=== PATIENT | male | born 1985 | race Caucasian/White ===

== ENCOUNTER → 2017-11-04 | Outpatient (CLI) | payer OTHER ==
[2017-11-04 10:34] LABS: CALCIUM 8.8 mg/dL (8.4-10.2); POTASSIUM 4.3 mmol/L (3.6-5.0)
== END ==
LOC: LAB 10:01
PROVIDERS: Physician Assistant
DX: Z00.00 Encounter for general adult medical examination without abnormal findings (principal)

== ENCOUNTER → 2018-11-03 | Outpatient (CLI) | payer OTHER ==
[2018-11-03 15:26] LABS: EOS # 0.2 (0.04-0.40); EOS % 3.3 % (0.0-4.0); HEMATOCRIT 45.4 % (42.0-52.0); HEMOGLOBIN 15.7 g/dL (13.5-18.0); LYMPH# 1.5 (1.50-4.00); MEAN CELL VOLUME 92 fl (78-100); MEAN CORPUSCULAR HEMOGLOBIN 32 pg (27-31); MEAN CORPUSCULAR HGB CONC 35 g/dL (33-37); MEAN PLATELET VOLUME 10.2 fl (7.4-10.4); MONO # 0.7 (0.20-0.80); NEU # 3.3 (1.40-6.50); PLATELET COUNT 232 K/mm3 (130-400); RED BLOOD COUNT 4.92 M/mm3 (4.20-5.60); RED CELL DISTRIBUTION WIDTH 12.5 % (11.5-14.5); WHITE BLOOD COUNT 5.7 K/mm3 (4.8-10.8)
[2018-11-03 15:44] LABS: URINE APPEARANCE CLEAR; URINE BILIRUBIN NEGATIVE (NEGATIVE); URINE BLOOD NEGATIVE (NEGATIVE); URINE COLOR YELLOW; URINE GLUCOSE NEGATIVE (NEGATIVE); URINE KETONE NEGATIVE (NEGATIVE); URINE LEUKOCYTE ESTERASE NEGATIVE (NEGATIVE); URINE NITRATE NEGATIVE (NEGATIVE); URINE PROTEIN(semi-quant) NEGATIVE (NEGATIVE); URINE UROBILINOGEN NORMAL (NORMAL); URINE WBC 0-1 /hpf (0-3)
[2018-11-03 15:45] LABS: URINE MUCUS PRESENT (NOT PRESENT)
[2018-11-03 16:11] LABS: ALBUMIN 4.3 g/dL (3.5-5.0); POTASSIUM 3.8 mmol/L (3.5-5.1)
[2018-11-03 16:12] LABS: CALCIUM 9.1 mg/dL (8.3-10.5)
[2018-11-03 16:13] LABS: TOTAL PROTEIN 7.8 g/dL (6.4-8.3)
[2018-11-03 16:15] LABS: TOTAL BILIRUBIN 0.7 mg/dL (0.2-1.2)
== END ==
LOC: LAB 15:03
PROVIDERS: Physician Assistant
DX: Z00.00 Encounter for general adult medical examination without abnormal findings (principal)

== ENCOUNTER 2021-02-10 15:38 | Emergency (ER) | payer OTHER ==
[2021-02-10 16:34] LABS: BASO # 0.04 K/mm3 (0.02-0.10); EOS # 0.22 K/mm3 (0.04-0.40); HEMATOCRIT 46.7 % (42.0-52.0); HEMOGLOBIN 16.3 g/dL (13.5-18.0); LYMPH# 1.66 K/mm3 (1.50-4.00); MEAN CELL VOLUME 93 fl (78-100); MEAN CORPUSCULAR HEMOGLOBIN 32 pg (27-31); MEAN CORPUSCULAR HGB CONC 35 g/dL (33-37); MEAN PLATELET VOLUME 9.7 fl (7.4-10.4); NEU # 4.79 K/mm3 (1.40-6.50); PLATELET COUNT 237 K/mm3 (130-400); RED BLOOD COUNT 5.04 M/mm3 (4.20-5.60); WHITE BLOOD COUNT 7.3 K/mm3 (4.8-10.8)
[2021-02-10 16:41] LABS: ALBUMIN 4.5 g/dL (3.5-5.0); POTASSIUM 3.4 mmol/L (3.5-5.1); SODIUM 140 mmol/L (136-145)
[2021-02-10 16:43] LABS: CALCIUM 9.2 mg/dL (8.3-10.5)
[2021-02-10 16:44] LABS: GLUCOSE 97 mg/dL (75-110); TOTAL PROTEIN 7.8 g/dL (6.4-8.3)
[2021-02-10 16:45] LABS: CARBON DIOXIDE 24 mmol/L (22-29)
[2021-02-10 16:46] LABS: TOTAL BILIRUBIN 0.6 mg/dL (0.2-1.2)
[2021-02-10 16:49] LABS: AST-SGOT 25 U/L (5-34)
[2021-02-10 16:50] LABS: ALT/SGPT 41 U/L (0-55)
[2021-02-10 17:38] LABS: URINE COLOR YELLOW
[2021-02-10 17:39] LABS: URINE APPEARANCE CLEAR
[2021-02-10 17:40] LABS: URINE BILIRUBIN NEGATIVE (NEGATIVE); URINE BLOOD TRACE (NEGATIVE); URINE GLUCOSE NEGATIVE (NEGATIVE); URINE KETONE NEGATIVE (NEGATIVE); URINE LEUKOCYTE ESTERASE NEGATIVE (NEGATIVE); URINE NITRATE NEGATIVE (NEGATIVE); URINE PROTEIN(semi-quant) TRACE mg/dL (NEGATIVE); URINE UROBILINOGEN NORMAL (NORMAL)
[2021-02-10 17:41] LABS: URINE MUCUS PRESENT (NOT PRESENT); URINE WBC 0-1 /hpf (0-3)
[2021-02-10 17:48] LABS: TROPONIN-I < 0.03 ng/mL (<0.030)
[2021-02-10] MEDS ORDERED: MECLIZINE PO (18:27)
[2021-02-10 18:35] VITALS: BP 136/86
== END 2021-02-10 18:35 | disposition home or self-care (01) ==
LOC: ED 15:38
PROVIDERS: Nurse Practitioner
DX: R42 Dizziness and giddiness (principal); R11.0 Nausea
CPT/HCPCS: J2405; J7030